=== PATIENT | female | born 1985 | race Caucasian/White ===

== ENCOUNTER 2017-09-22 16:50 | Day surgery (SDC) | payer BC ==
[2017-09-22 17:54] LABS: Amnisure Test No Membranes Rupture (No Rupture)
[2017-09-22 17:55] LABS: Amnisure Internal Control QC ACCEPTABLE (ACCEPTABLE)
[2017-09-22 17:56] VITALS: BMI 24.3
--- NOTE | 2017-09-22 18:07 | PDOC.LDHP ---
Labor and Delivery H&P Chief complaint: loss of fluid HPI: 32 y/o at 35w0d, patient of Dr. Estrella, presents with ?LOF today. Denies any large gush, just wetness since this am. Denies VB, ctx, or decreased FM. Denies vaginal discharge, itching or irritation. ROS neg for HEENT, CV, pulm, GI, , neuro, psych, skin, musculoskeletal, or constitutional symptoms other than mentioned above. OB History Details: 2 prior term CS. First for FHRA after epidural. Current complications: none Current medications: pre-zeke vitamins Previous surgical history: low tranverse CS (x2), other (arthroscopic surgery of knee and shoulder) Allergies/Adverse Reactions: Allergies Allergy/AdvReac Type Severity Reaction Status Date / Time No Known Allergies Allergy Verified 09/22/17 17:43 Social history: none - Physical Exam Vital signs reviewed and normal: yes General: NAD, resting Lungs: nonlabored breathing Abdomen: gravid Extremeties: no edema FHT: category 1 (140s, mod variability, + accels, no decels) Avard contractions every: none - OB Labs Additional Labs: Amnisure negative - Assessment 32 y/o at 35w0d with no e/o SROM. status reassuring with reactive NST. - Plan -: D/c home with precautions. Advised to keep all appointments.
== END 2017-09-22 18:10 | disposition home health service (06) ==
LOC: L&D/OP 16:50
PROVIDERS: ATTEND Obstetrics & Gynecology
DX: O26.893 Other specified pregnancy related conditions, third trimester (principal); N89.8 Other specified noninflammatory disorders of vagina; Z79.899 Other long term (current) drug therapy; Z3A.35 35 weeks gestation of pregnancy
CPT/HCPCS: 84112; 99283

== ENCOUNTER 2017-10-04 11:01 | Day surgery (SDC) | payer BC ==
[2017-10-04 11:41] VITALS: BMI 24.3
[2017-10-04] MEDS ORDERED: diphenhydrAMINE 50 MG/ML VIAL ONE ×2 (12:34)
[2017-10-04] MEDS ORDERED: Butorphanol Tartrate 1 MG/ML VIAL ONE (12:35)
[2017-10-04] MEDS ORDERED: Butorphanol Tartrate 1 MG/ML VIAL SLOW IVP PRN (12:38)
[2017-10-04] MEDS ORDERED: Dextrose 5%-Lactated Ringers 1,000 ML IV SCH (12:45)
[2017-10-04 12:47] LABS: Bilirubin Negative (Negative); Blood, Urine Negative (Negative); Clarity CLEAR (Clear); Glucose, Urine (Dipstick) 100 mg/dL (Negative); Leukocyte Negative (Negative); Nitrite Negative (Negative); Protein, Urine (Dipstick) Negative (Neg-Trace); Specific Gravity, Urine 1.018 (1.002-1.036)
[2017-10-04] MEDS ORDERED: Lactated Ringer's 1,000 ML IV SCH (13:15)
[2017-10-04 13:25] LABS: #Lymphocytes 0.4 thou/uL (1.20-3.40); #Monocytes 0.7 thou/uL (0.11-0.59); %Basophils 0.1 % (0.0-1.0); %Eosinophils 0.4 % (0.0-10.0); %Lymphocytes 5.7 % (21.0-51.0); %Monocytes 11.5 % (0.0-10.0); %Neutrophils 82.2 % (42.0-75.0); Hemoglobin 10.4 g/dL (12.0-16.0); Mean Corpuscular HGB CONC 34.3 g/dL (32.0-36.0); Mean Corpuscular Hemoglobin 30.8 pg (27.0-31.0); Mean Corpuscular Volume 89.7 fl (81.0-99.0); Mean Platelet Volume 6.7 fL (7.4-10.4); Platelet Count 151 thou/uL (130-400); RBC Distribution Width 11.5 % (11.5-14.5); Red Blood Cell (RBC) Count 3.39 mill/uL (4.20-5.40); White Blood Cell (WBC) Count 6.1 thou/uL (4.8-10.8)
--- NOTE | 2017-10-04 15:13 | SS ---
DATE OF SERVICE: 10/04/2017 REGULAR PHYSICIAN: Iza Estrella M.D. EVALUATING PHYSICIAN: Manuel Bedoya M.D. CHIEF COMPLAINT: "Headache, back pain". HISTORY OF PRESENT ILLNESS: Ms. Hodgson is a 32-year-old white G3, P2-0-0-2 with an estimated date of confinement of 10/27/2017 who presents complaining of a migraine headache since midnight also associated with lower abdominal discomfort that radiates to her back. She denies ruptured membranes, vaginal bleeding or decreased movement. She has had some nausea associated with this. She denies fever or chills. OBSTETRICAL HISTORY: Current care is with Dr. Estrella. She has had 2 previous sections and is scheduled for a repeat section on 10/20/2017. PAST MEDICAL HISTORY: Migraine headaches. PAST SURGICAL HISTORY: x2 as above. CURRENT MEDICATIONS: vitamins, denies current migraine medications. ALLERGIES: No known allergies. SOCIAL HISTORY: Denies tobacco or alcohol use. FAMILY HISTORY: Unremarkable. REVIEW OF SYSTEMS: Positive for nausea and photophobia. Negative for vaginal bleeding, ruptured membranes, or decreased movement. PHYSICAL EXAMINATION: VITAL SIGNS: Stable. She is afebrile, blood pressures are in 90s/50s ABDOMEN: Soft, nontender, gravid. Pelvic exam by the labor nurse shows the cervix to be closed and long. heart rate tracing is stable with good beat to beat variability and positive accelerations. Initially some irritability seen. This is resolved after hydration. LABORATORY DATA: White count 6.1. Hemoglobin and hematocrit 10.4 and 30.4, platelet count is 151,000. Urinalysis shows 2+ glucose, +1 ketones with negative blood, negative nitrites, negative leukocyte esterase. The patient is given a fluid bolus along with 1 mg of Stadol. Her symptoms have essentially resolved after this treatment. ASSESSMENT: 1. A 37-week intrauterine . 2. Two previous sections, no evidence of active labor at this time. 3. Migraine headache resolved after Stadol x1. PLAN: The patient will be discharged to home. I did give her 20 tablets of Tylenol #3 one to two p.o. q.6 h. p.r.n. headache, but told her to only use these sparingly. She has an appointment with Dr. Estrella next week and I have urged her to stay at home rest this weekend, hydrate herself well and to keep that appointment with Dr. Estrella. KEYUR
== END 2017-10-04 14:24 | disposition home or self-care (01) ==
LOC: L&D/OP 11:01
PROVIDERS: ATTEND Obstetrics & Gynecology
DX: O99.353 Diseases of the nervous system complicating pregnancy, third trimester (principal); G43.909 Migraine, unspecified, not intractable, without status migrainosus; O99.89 Other specified diseases and conditions complicating pregnancy, childbirth and the puerperium; M54.9 Dorsalgia, unspecified; Z3A.37 37 weeks gestation of pregnancy; Z79.899 Other long term (current) drug therapy; Z98.891 History of uterine scar from previous surgery
CPT/HCPCS: 81003; 85025; 96360; 96361; 96375; 99283; J0595; J1200

== ENCOUNTER 2017-10-20 05:56 | Inpatient (IN) | payer BC, OTHER ==
--- NOTE | 2017-10-19 21:34 | PDOC.LDHP ---
Labor and Delivery H&P Chief complaint: scheduled induction, scheduled section HPI: 32 y/o WF prior at 39-40 weeks edc 10/27/17. prior c/s x2 . Uncomplicated thus far. Current gestational age (weeks): 39 Dating criteria: last menstrual period Grav: 3 Para: 2 Current complications: none Abnormal US findings: No Current medications: pre- vitamins Previous surgical history: low tranverse CS Allergies/Adverse Reactions: Allergies Allergy/AdvReac Type Severity Reaction Status Date / Time No Known Allergies Allergy Verified 10/04/17 11:34 Social history: none - Physical Exam General: NAD, resting, breathing through contractions, other Heart: RRR Lungs: nonlabored breathing Abdomen: NTTP FHT: category 1 - OB Labs Blood type: B RH: positive Antibody Screen: negative HIV: negative RPR: negative HEPSAg: negative 1 hour GCT: negative GBS: negative Urine drug screen: not done Rubella: immune - Assessment L&D Assessment: scheduled repeat section - Plan Plan: admit to L&D, to OR for section
[~2017-10-20 05:56] MED LIST: Bicitra 30 ML UDCUP PO SCH; CEFAZOLIN/Water 2 GM/20 ML SYRINGE SLOW IVP SCH; Ondansetron HCl/PF 4 MG/2 ML Vial IVP PRN; Promethazine HCl 25 MG/ML VIAL IM PRN
[2017-10-20 06:20] VITALS: BMI 24.9
[2017-10-20 06:53] LABS: Hemoglobin 10.7 g/dL (12.0-16.0); Mean Corpuscular HGB CONC 33.9 g/dL (32.0-36.0); Mean Corpuscular Hemoglobin 29.9 pg (27.0-31.0); Mean Corpuscular Volume 88.2 fl (81.0-99.0); Mean Platelet Volume 6.4 fL (7.4-10.4); Platelet Count 207 thou/uL (130-400); RBC Distribution Width 12.7 % (11.5-14.5); Red Blood Cell (RBC) Count 3.59 mill/uL (4.20-5.40); White Blood Cell (WBC) Count 7.3 thou/uL (4.8-10.8)
[2017-10-20] MEDS ORDERED: Methylergonovine 0.2 MG/ML VIAL ONE (06:56)
[2017-10-20] MEDS ORDERED: Misoprostol 200 MCG TAB ONE (06:56)
[2017-10-20] MEDS ORDERED: Morphine PF 1 MG/ML SYR ONE (06:58)
[2017-10-20] MEDS ORDERED: Fentanyl 100 MCG/2 ML VIAL ONE (06:58)
[2017-10-20] MEDS ORDERED: PHENYLEPHRINE-NS 100 MCG/ML 10 ML SYRINGE ONE ×2 (06:59→12:44)
[2017-10-20] MEDS ORDERED: Lidocaine 1% PF 5 ML VIAL ONE (06:59)
[2017-10-20] MEDS ORDERED: Oxytocin 10 UNITS/ML VIAL ONE (06:59)
[2017-10-20] MEDS ORDERED: ePHEDrine/0.9% NaCl/PF SYRINGE 50 mg/10 ml ONE (06:59)
[2017-10-20] MEDS ORDERED: Bupivacaine 0.75% W/DEXTROSE 8.25% 2 ML AMP ONE (06:59)
[2017-10-20] MEDS ORDERED: Ketorolac Tromethamine 30 MG/ML VIAL ONE ×2 (06:59→12:44)
[2017-10-20] MEDS ORDERED: Dexamethasone 4 mg/ml Vial ONE (06:59)
[2017-10-20] MEDS: Lactated Ringer's 1,000 ML IV SCH ×3 (07:00→19:50)
[2017-10-20] MEDS ORDERED: Meperidine HCl/PF 25 MG/ML VIAL SLOW IVP PRN (07:54)
[2017-10-20] MEDS ORDERED: Naloxone HCl 0.4 mg/ml Vial IV PRN ×3 (07:54→13:58)
[2017-10-20] MEDS ORDERED: Promethazine HCl 25 MG SUPP PR PRN ×2 (07:54→13:58)
[2017-10-20] MEDS ORDERED: Ondansetron HCl/PF 4 MG/2 ML Vial IVP PRN ×3 (07:54→13:58)
[2017-10-20] MEDS ORDERED: Ketorolac Tromethamine 30 MG/ML VIAL IVP PRN ×2 (07:54→13:58)
[2017-10-20] MEDS ORDERED: diphenhydrAMINE 50 MG/ML VIAL IVP PRN ×2 (07:54→13:58)
[2017-10-20] MEDS ORDERED: HYDROmorphone 2 MG/ML VIAL SLOW IVP PRN (07:54)
[2017-10-20] MEDS ORDERED: Promethazine HCl 25 MG/ML VIAL IM PRN ×2 (07:54→13:58)
[2017-10-20] MEDS ORDERED: Naloxone HCl 0.4 mg/ml Vial IVP PRN ×3 (07:54→13:58)
[2017-10-20] MEDS ORDERED: Eucerin (Mineral Oil/Petrolatum,White) 30 gm Jar TOP PRN (07:54)
[2017-10-20] MEDS ORDERED: Ketorolac Tromethamine 30 MG/ML VIAL IVP SCH (08:00)
[2017-10-20] MEDS ORDERED: Communication Order-Pharmacy FS SCH (08:00)
[2017-10-20] MEDS ORDERED: Zolpidem Tartrate 5 MG TAB PO PRN (08:29)
[2017-10-20] MEDS ORDERED: diphenhydrAMINE 25 MG CAP PO PRN (08:29)
[2017-10-20] MEDS ORDERED: Simethicone Chewable 80 MG TAB PO PRN (08:29)
[2017-10-20] MEDS ORDERED: Acetaminophen/Codeine 30-300mg Tablet PO PRN ×2 (08:29)
[2017-10-20] MEDS ORDERED: Lanolin Ointment 7 GM TUBE TOP PRN (08:29)
[2017-10-20] MEDS ORDERED: Bisacodyl 10 MG SUPP PR PRN (08:29)
[2017-10-20] MEDS ORDERED: Adacel (T-DAP) 0.5 ML VIAL IM ONE (08:29)
[2017-10-20] MEDS ORDERED: Misoprostol 200 MCG TAB PR SCH (08:30)
[2017-10-20 09:03] LABS: HBSAg Index 0.12 S/CO (0-0.99); Hep B Surf Ag Non-Reactive S/CO (NonReactive)
[2017-10-20] MEDS ORDERED: Meperidine HCl/PF 25 MG/ML VIAL ONE (10:14)
[2017-10-20] MEDS: Prenatal Vitamin 1 TAB PO SCH (11:43)
[2017-10-20] MEDS: Docusate Calcium (SURFAK) 240 MG CAP PO SCH (11:43)
[2017-10-20] MEDS ORDERED: Dexamethasone 20 MG/5 ML VIAL ONE (12:44)
[2017-10-20] MEDS ORDERED: NS / Oxytocin 40 units/1000ml 1,000 ML ONE (12:50)
[2017-10-20] MEDS ORDERED: Ketorolac Tromethamine 60 MG/2 ML VIAL IVP PRN (13:58)
[2017-10-20] MEDS ORDERED: Acetaminophen 1,000 MG in Premix Bag 1 BAG IVPB PRN (13:58)
[2017-10-20] MEDS ORDERED: Hydrocerin (Eucerin) Cream 120 gm Jar TOP PRN (13:58)
[2017-10-20] MEDS ORDERED: NO PO,IM,IV OR SC NARCOTICS FOR 12HR EXCEPT BY ANESTHESIA PO SCH (13:58)
[2017-10-20] MEDS: Ketorolac Tromethamine 30 MG/ML VIAL IVP PRN ×2 (14:11→22:50)
--- NOTE | 2017-10-20 22:57 | OP ---
DATE OF PROCEDURE: 10/20/2017 PREOPERATIVE DIAGNOSES: 1. A 32-year-old white female, G3, P2 at 39 weeks gestation, prior x2. 2. For repeat section. POSTOPERATIVE DIAGNOSES: 1. A 32-year-old white female G3, P2 at 39 weeks gestation, prior x2. 2. For repeat section. PROCEDURE PERFORMED: Low transverse section without extension. SURGEON: Iza Estrella M.D. COOK JELLY SURGEON: Lyudmila Melendez D.O. ANESTHESIA: Spinal block. ESTIMATED BLOOD LOSS: 500 mL. COMPLICATIONS: None. COUNTS: Correct x2. ANTIBIOTICS: Two grams Ancef senior vice president and chief information officer to the OR. FINDINGS: 1. Vigorous female , vertex presentation, Apgars 8 and 8 with birthweight of 10 pounds 14 ounc es. 2. Normal-appearing fallopian tubes, uterus and ovaries. DISPOSITION: To the recovery room, stable. DESCRIPTION OF OPERATIVE PROCEDURE: The patient previously received informed consent in regard to [facility]. She was taken back to the operating room where she received a spinal block without complicati ons. She was placed in supine position, prepped and draped in usual sterile fashion. Hart catheter and PlexiPulses had been placed prior to this. Pfannenstiel incision was made through the previous scar site and was taken down to the fascia. Fascia was nicked in midline. Fascial incision extended bilaterally with curved Gamez scissors. Rectus muscle bellies were divided in the midline. There we re some vesicouterine peritoneal adhesions, which were then bladder flap was created, dropping the bl adder past below the hysterotomy incision site. A 2-cm hysterotomy incision was made with a scalpel and this was extended via finger fractionation. Amniotic bag was ruptured with clear amniotic fluid noted. The baby was delivered in the vertex presentation. Mouth and nares were bulb suctioned on th e abdomen. Cord was doubly clamped and cut and the baby was handed to pediatric nurse practitioner i n attendance. Usual cord blood was obtained. Placenta was manually extracted. Uterus was externali zed. The uterus curetted of any remaining placental fragments with a dry laparotomy sponge. Hystero melba incision was closed in running locking fashion with #1 Monocryl suture. Hemostasis was confirme d. Uterus returned back into the abdomen. Pelvis was irrigated and suctioned. Hemostasis along the hysterotomy site again was confirmed. The rectus muscle bellies were noted be hemostatic prior to f ascial closure. The fascia was closed in running 0 PDS x1. Subcutaneous tissue was noted to be hemo static and it was approximated with 3-0 plain gut in a running continuous fashion and demario were pl aced for skin closure and surgery was terminated. No anesthetic or surgical complications occurred.
[2017-10-21] MEDS: Docusate Calcium (SURFAK) 240 MG CAP PO SCH ×3 (00:57→21:11)
[2017-10-21 01:41] LABS: Syphilis Antibody Nonreactive (Nonreactive); Syphilis Antibody Index 0.04 S/CO (<1.00 Non-Reactive)
[2017-10-21 04:58] LABS: Hemoglobin 8.8 g/dL (12.0-16.0); Mean Corpuscular HGB CONC 34.4 g/dL (32.0-36.0); Mean Corpuscular Hemoglobin 31.2 pg (27.0-31.0); Mean Corpuscular Volume 90.6 fl (81.0-99.0); Mean Platelet Volume 6.8 fL (7.4-10.4); Platelet Count 150 thou/uL (130-400); Red Blood Cell (RBC) Count 2.82 mill/uL (4.20-5.40); White Blood Cell (WBC) Count 8.4 thou/uL (4.8-10.8)
[2017-10-21] MEDS: Ketorolac Tromethamine 30 MG/ML VIAL IVP PRN (06:08)
--- NOTE | 2017-10-21 07:36 | PDOC.PP ---
Post Progress Note Post Day #: 1 PO intake tolerated: yes Flatus: yes Ambulation: yes Vital Signs (12 hours) Temp Pulse Resp BP Pulse Ox 10/21/17 03:15 97.7 F 65 18 98/56 L 10/21/17 00:12 98.7 F 63 18 94/58 L 97 10/20/17 19:45 97.9 F 62 18 101/68 96 Weight Weight 169 lb - Physical Examination General: NAD Cardiovascular: no m/r/g, RRR Respiratory: clear to auscultation bilaterally, non-labored breathing Abdominal: + bowel sounds, lochia, no distention, appropriately TTP Result Diagrams: 10/21/17 04:33 Additional Labs: Post Labs Blood Type B POSITIVE 10/19/17 06:20 Hep Bs Antigen Non-Reactive S/CO (NonReactive) 10/19/17 06:20 - Assessment/Plan Post op day 1 from repeat c/s .Hemodynamically stable. Appropriate blood loss...Hct 31 to 25 post op. Routine post op care.
[2017-10-21] MEDS ORDERED: Acetaminophen/Codeine 30-300mg Tablet PO PRN (08:18)
[2017-10-21] MEDS: Prenatal Vitamin 1 TAB PO SCH (08:28)
[2017-10-21] MEDS: Lactated Ringer's 1,000 ML IV SCH ×2 (11:40→18:39)
[2017-10-21] MEDS: Acetaminophen/Codeine 30-300mg Tablet PO PRN ×3 (11:41→23:44)
[2017-10-21] MEDS: Ibuprofen 800 MG TAB PO SCH ×2 (13:48→21:11)
[2017-10-22] MEDS: Lactated Ringer's 1,000 ML IV SCH ×2 (02:14→09:06)
[2017-10-22] MEDS: Ibuprofen 800 MG TAB PO SCH ×2 (06:14→13:05)
[2017-10-22 08:53] VITALS: BP 99/62; TEMP 98
[2017-10-22] MEDS: Prenatal Vitamin 1 TAB PO SCH (09:04)
[2017-10-22] MEDS: Docusate Calcium (SURFAK) 240 MG CAP PO SCH (09:04)
[2017-10-22] MEDS: Acetaminophen/Codeine 30-300mg Tablet PO PRN ×2 (09:05→14:29)
--- NOTE | 2017-10-22 10:03 | PDOC.PP ---
Post Progress Note Post Day #: 2 PO intake tolerated: yes Flatus: yes Ambulation: yes Vital Signs (12 hours) Temp Pulse Resp BP 10/22/17 07:45 98.0 F 75 18 99/62 10/21/17 23:43 98.9 F 66 18 96/60 Weight Weight 169 lb - Physical Examination General: NAD Cardiovascular: no m/r/g, RRR Respiratory: clear to auscultation bilaterally, non-labored breathing Result Diagrams: 10/21/17 04:33 Additional Labs: Post Labs Blood Type B POSITIVE 10/19/17 06:20 Hep Bs Antigen Non-Reactive S/CO (NonReactive) 10/19/17 06:20 - Assessment/Plan post op day 2 from repeat c/s. doing well. d/c today if baby is discharged. f/u in 6 weeks and post opday 7 for staple removal.
== END 2017-10-22 16:30 | disposition home or self-care (01) | DRG 766 ==
LOC: L&D 05:56 → 3SW 11:08
PROVIDERS: ADMIT Obstetrics & Gynecology; ATTEND Obstetrics & Gynecology
PROC: 10D00Z1 Extraction of Products of Conception, Low, Open Approach (ICD-10-PCS; principal; 2017-10-20)
DX: O34.211 Maternal care for low transverse scar from previous cesarean delivery (principal); N85.8 Other specified noninflammatory disorders of uterus; Z3A.39 39 weeks gestation of pregnancy; Z37.0 Single live birth
CPT/HCPCS: 36415; 51702; 85027; 86780; 86850; 86900; 86901; 87086; 87340; J1100; J1885; J2001; J2175; J2210; J2274; J2310; J2590; J3010; J3490